=== PATIENT | female | born 1990 | race Caucasian/White ===

== ENCOUNTER 2017-02-07 10:18 | Emergency (ER) | payer SELFPAY ==
[~2017-02-07] VITALS: Ht 175.3 cm; Wt 63.5 kg
[~2017-02-07 10:18] MED LIST: CIPRO500 M2 PO; CONCEPT DHA CA1 EACH PO; MACROBID 100 M100 MG PO; NO HOME MEDICATION XX; NO MEDS CURRENTLY; NORCO 5/325 TAB1 TAB PO; PRENATAL1 EACH PO
[2017-02-07] MEDS ORDERED: LEXAPRO10 M2 PO (10:40)
[2017-02-07 11:03] LABS: URINE APPEARANCE CLEAR; URINE BILIRUBIN NEGATIVE (NEG); URINE BLOOD SMALL (NEG); URINE COLOR YELLOW; URINE GLUCOSE (UA) NEGATIVE (NEG); URINE KETONE NEGATIVE (NEG); URINE LEUKOCYTE ESTERASE POSITIVE (NEG); URINE NITRITE NEGATIVE (NEG); URINE PROTEIN NEGATIVE (NEG)
[2017-02-07 11:11] LABS: URINE BACTERIA 3+; URINE RBC 0 /[HPF] (0-5)
[2017-02-07] MEDS ORDERED: CEFDINIR300 M1 PO (11:15)
== END 2017-02-07 11:29 ==
LOC: EDMED 10:18
PROVIDERS: Emergency Medicine
DX: N12 Tubulo-interstitial nephritis, not specified as acute or chronic (principal); J45.909 Unspecified asthma, uncomplicated; F17.200 Nicotine dependence, unspecified, uncomplicated